=== PATIENT | female | born 1985 | race African-American/Black ===

== ENCOUNTER 2017-04-14 07:05 | Emergency (ER) | payer OTHER ==
[2017-04-14 07:13] VITALS: TEMP 98.1; BMI 28.3
--- NOTE | 2017-04-14 08:42 | PDOC ---
History of Present Illness - General Chief Complaint: Vaginal Sxs Stated Complaint: VAGINAL SIGNS AND SYMPTOMS Time Seen by Provider: 04/14/17 07:33 History Source: Patient Exam Limitations: No Limitations - History of Present Illness Travel History: No Initial Comments: 04/14/17 09:00 Patient came to emergency department for evaluation of chronic vaginal drainage and diagnosis of bacterial vaginosis. Patient has been treated on multiple occasions with Flagyl by mouth and vaginal suppositories. Last episode was approximately one year ago 04/14/17 09:08 04/15/17 14:48 Quality: reports: mild, other (foul smell) Past History - Travel Traveled outside of the country in the last 30 days: No Close contact w/someone who was outside of country & ill: No - Past Medical History Allergies/Adverse Reactions: Allergies Allergy/AdvReac Type Severity Reaction Status Date / Time No Known Allergies Allergy Verified 04/14/17 07:09 Home Medications: Ambulatory Orders Metronidazole 0.75% Vag. Gel [Metrogel 0.75% Vaginal Gel -] 1 applic VG HS #1 tube 04/14/17 Asthma: No Cancer: Yes (PITUITARY TUMOR) Cardiac Disorders: No Diabetes: No HTN: No Seizures: No Thyroid Disease: No - Family Disease History Family Disease History: Diabetes: Father, Heart Disease: Father - Reproductive History Is Patient Now?: No (#): 4 Para: 1 Cervical CA: No Dysfunctional Uterine Bleeding: No Ectopic : No Endometrial CA: No Polycystic Ovaries: No Tubal Ligation: No Spontaneous : 2 - Immunization History Td Vaccination: No Immunization Up to Date: No - Psycho/Social/Smoking Cessation Hx Anxiety: No Suicidal Ideation: No Smoking Status: No Smoking History: Never smoked Years of Tobacco Use: 1 Have you smoked in the past 12 months: No Number of Cigarettes Smoked Daily: 0 Information on smoking cessation initiated: No Hx Alcohol Use: No Drug/Substance Use Hx: No Substance Use Type: None Hx Substance Use Treatment: No Review of Systems - Review of Systems Able to Perform ROS?: Yes Is the patient limited Urdu proficient: Yes Constitutional: Yes: Symptoms Reported, See HPI, Malaise HEENTM: Yes: Symptoms Reported, See HPI Respiratory: Yes: Symptoms reported, See HPI ABD/GI: Yes: Symptoms Reported, Other (tenderness to ruQ/ LLQ and right pelvis ) Musculoskeletal: Yes: Symptoms Reported, See HPI, Back Pain, Joint Pain (right hip ), Neck Pain All Other Systems: Reviewed and Negative *Physical Exam - Vital Signs Last Vital Signs Temp Pulse Resp BP Pulse Ox 98.1 F 60 18 122/55 100 04/14/17 07:09 04/14/17 07:09 04/14/17 07:09 04/14/17 07:09 04/14/17 07:09 - Physical Exam General Appearance: Yes: Nourished, Appropriately Dressed, Apparent Distress, Severe Distress HEENT: positive: LYNDA, TMs Normal, Pharynx Normal Neck: positive: Tender, Supple, Tender midline Respiratory/Chest: positive: Lungs Clear, Normal Breath Sounds Female Pelvic Exam: positive: normal external exam, discharge (fishy odored brownlee / white discharge listed with appearance of bacterial vaginosis) Gastrointestinal/Abdominal: positive: Soft. 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 We'll treat with MetroGel and given 2 refills. 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 Gel [Metrogel 0.75% Vaginal Gel -] 1 applic VG HS #1 tube - Referrals Referrals: Anita Eastman MD [Primary Care Provider] - - Patient Instructions Printed Discharge Instructions: DI for Bacterial Vaginosis Additional Instructions: Rest, drink lots of fluids: Teas, water, soups Avoid contact with others until fevers and symptoms resolved Lots of handwashing and good hygiene Continue [id number] medications for symptomatic relief Tylenol or Motrin for fever and pain Continue all of antibiotics until completed Followup with private physician in one week for repeat urinalysis/reevaluation Return to emergency department for worsened symptoms, fevers, dehydration - Post Discharge Activity Work/School Note: Back to Work
[2017-04-14] MEDS ORDERED: morphine CARPU-JECT 10 MG/1 ML DISP.SYRIN IVPUSH ONE (08:57)
[2017-04-14 09:20] VITALS: BP 118/60; PULSE 69
== END 2017-04-14 09:00 | disposition home or self-care (01) ==
LOC: JER 07:05
DX: N76.0 Acute vaginitis (principal); B96.89 Other specified bacterial agents as the cause of diseases classified elsewhere
CPT/HCPCS: 84703; 99282-25

== ENCOUNTER 2017-07-28 10:45 | Emergency (ER) | payer OTHER ==
[2017-07-28 11:09] VITALS: BP 116/81; PULSE 71; TEMP 98; BMI 28.8
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
== END 2017-07-28 12:18 | disposition home or self-care (01) ==
LOC: JER 10:45 → JERFT 10:45 → JER 12:18
DX: T59.814A Toxic effect of smoke, undetermined, initial encounter (principal); J68.8 Other respiratory conditions due to chemicals, gases, fumes and vapors; Y92.811 Bus as the place of occurrence of the external cause
CPT/HCPCS: 99282-25

== ENCOUNTER 2018-02-12 17:21 | Emergency (ER) | payer OTHER ==
[2018-02-12] MEDS ORDERED: ALBUTEROL SO4 2.5/IPRATROPIUM 0.5 INH SOL 3 ML VIAL.NEB. NEB ONE ×4 (17:43→19:08)
--- NOTE | 2018-02-12 17:44 | PDOC ---
Rapid Medical Evaluation Time Seen by Provider: 02/12/18 17:39 Medical Evaluation: Allergies Allergy/AdvReac Type Severity Reaction Status Date / Time No Known Allergies Allergy Verified 07/28/17 11:08 02/12/18 17:39 The patient presents with a chief complaint of: Cough with chest tightness and back tightness for one week. Also admits to sore throat and shortness of breath. I have performed a brief in-person evaluation of this patient; Pertinent physical exam findings: ambulatory, in no respiratory distress. Tight lung sounds. No w/r/r. I have ordered the following: EKG, Rapid strep, duoneb The patient will proceed to the ED for further evaluation.
[2018-02-12 17:45] VITALS: BP 126/74; PULSE 68; TEMP 98.5; BMI 28.8
--- NOTE | 2018-02-12 19:11 | PDOC ---
History of Present Illness - General Chief Complaint: Respiratory Stated Complaint: COLD SYMPTOMS Time Seen by Provider: 02/12/18 17:39 History Source: Patient Exam Limitations: No Limitations - History of Present Illness Initial Comments: 02/12/18 19:06 Patient is here with complaints of tightness and inspiratory pain to chest for a few days. States has significant post-sinus drainage, and suffers from seasonal ALLERGIES. Thinks may have onset of those ALLERGIES now but has taken no medication for relief. Was concerned about having pneumonia. Denies fever, denies phlegm production, no one else at home is sick. Severity: reports: mild Associated Symptoms: reports: chest pain/soreness, cough, nasal congestion, wheezing. denies: facial pain, fever/chills, nasal drainage, sore throat Past History - Travel Traveled outside of the country in the last 30 days: No Close contact w/someone who was outside of country & ill: No - Past Medical History Allergies/Adverse Reactions: Allergies Allergy/AdvReac Type Severity Reaction Status Date / Time No Known Allergies Allergy Verified 02/12/18 17:40 Home Medications: Ambulatory Orders Cetirizine HCl [Zyrtec -] 10 mg PO DAILY #30 tablet 02/12/18 Asthma: No Cancer: Yes (PITUITARY TUMOR) Cardiac Disorders: No COPD: No Diabetes: No HTN: No Seizures: No Thyroid Disease: No - Family Disease History Family Disease History: Diabetes: Father, Heart Disease: Father - Reproductive History (#): 4 Para: 1 Cervical CA: No Dysfunctional Uterine Bleeding: No Ectopic : No Endometrial CA: No Polycystic Ovaries: No Tubal Ligation: No Spontaneous : 2 - Immunization History Td Vaccination: No Immunization Up to Date: No - Suicide/Smoking/Psychosocial Hx Smoking Status: No Smoking History: Current every day smoker Years of Tobacco Use: 1 Have you smoked in the past 12 months: Yes Number of Cigarettes Smoked Daily: 3 Information on smoking cessation initiated: No Hx Alcohol Use: No Drug/Substance Use Hx: No Substance Use Type: None Hx Substance Use Treatment: No Respiratory Specific PMHX - Complaint Specific PMHX Angina: No Bronchitis: No Pneumonia: No Pulmonary Embolus: No TB (Tuberculosis): No Review of Systems - Review of Systems Able to Perform ROS?: Yes Is the patient limited [place] proficient: Yes Constitutional: Yes: Symptoms Reported, See HPI, Malaise. No: Fever HEENTM: Yes: See HPI. No: Symptoms Reported Respiratory: Yes: Symptoms reported, See HPI, Cough Integumentary: No: Symptoms Reported Neurological: Yes: Symptoms reported All Other Systems: Reviewed and Negative *Physical Exam - Vital Signs Last Vital Signs Temp Pulse Resp BP Pulse Ox 98.5 F 68 18 126/74 96 02/12/18 17:40 02/12/18 17:40 02/12/18 17:40 02/12/18 17:40 02/12/18 17:40 - Physical Exam General Appearance: Yes: Appropriately Dressed. No: Apparent Distress HEENT: positive: LYNDA, Normal ENT Inspection (noted posterior sinus drainage, thick white), TMs Normal, Pharynx Normal Neck: positive: Tender, Supple, Lymphadenopathy (R), Lymphadenopathy (L) Respiratory/Chest: positive: Lungs Clear, Normal Breath Sounds. 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 We'll recommend antihistamine use as pollen season is starting. *DC/Admit/Observation/Transfer Diagnosis at time of Disposition: Allergic rhinitis Qualifiers: Allergic rhinitis trigger: unspecified Allergic rhinitis seasonality: seasonal Qualified Code(s): J30.2 - Other seasonal allergic rhinitis - Discharge Dispostion Disposition: HOME Condition at time of disposition: Stable Admit: No - Referrals - Patient Instructions Additional Instructions: Rest, drink lots of fluids: Teas, water, soups Saltwater gargles. Consider humidifier in room at night Steamy showers/seem to face break up mucus Avoid contact with allergens, exposure to pollens, close windows on a windy day Lots of handwashing and good hygiene Continue [id number] medications for symptomatic relief- may use allergic eyedrops for itching I Continue antihistamines daily until pollen season is over; Zyrtec, Claritin, Sun during the daytime and Benadryl at nighttime as will make sleepy Tylenol or Motrin for fever and pain Followup with private physician in one to 2 days as needed Consider following up with an law instructor/grain oilseed or pasture farm manager for skin testing and possible allergy shots Return to emergency department for worsened symptoms, fevers, dehydration - Post Discharge Activity Forms/Work/School Notes: Back to Work
== END 2018-02-12 19:31 | disposition home or self-care (01) ==
LOC: JER 17:21 → JERFT 17:21
PROC: 3E0F7GC Introduction of Other Therapeutic Substance into Respiratory Tract, Via Natural or Artificial Opening (ICD-10-PCS; principal; 2018-02-12)
PROC: 3E0F7GC Introduction of Other Therapeutic Substance into Respiratory Tract, Via Natural or Artificial Opening (ICD-10-PCS; 2018-02-12)
DX: J30.2 Other seasonal allergic rhinitis (principal); F17.210 Nicotine dependence, cigarettes, uncomplicated
CPT/HCPCS: 87070; 87077; 87430; 99281-25

== ENCOUNTER 2018-11-11 15:55 | Emergency (ER) | payer OTHER ==
[2018-11-11 16:19] VITALS: BP 121/67; PULSE 72; TEMP 98.1; BMI 28.8
[2018-11-11] MEDS ORDERED: ALBUTEROL SO4 2.5/IPRATROPIUM 0.5 INH SOL 3 ML VIAL.NEB. NEB ONE ×2 (16:20→16:50)
--- NOTE | 2018-11-11 16:20 | PDOC ---
Rapid Medical Evaluation Medical Evaluation: Allergies Allergy/AdvReac Type Severity Reaction Status Date / Time No Known Allergies Allergy Verified 02/12/18 17:40 I have performed a brief in-person evaluation of this patient. The patient presents with a chief complaint of: sore throat x 2 days along with chest tightness, dry cough; denies fever, rhinorrhea, nasal congestion; former smoker (quit 6 months ago); denies any medical problems Pertinent physical exam findings: Oropharynx clear, some tonsillar enlargement noted, but no exudates; lungs clear I have ordered the following: trial of duoneb x1 The patient will proceed to the ED for further evaluation. 11/11/18 16:16
[2018-11-11] MEDS ORDERED: methylPREDNISolone NA SUCC 125 MG/2 ML VIAL IM ONE (16:49)
[2018-11-11] MEDS ORDERED: methylPREDNISolone NA SUCC 125 MG/2 ML VIAL ONE (16:50)
--- NOTE | 2018-11-11 16:55 | PDOC ---
History of Present Illness - General Chief Complaint: Respiratory Stated Complaint: SORE THROAT Time Seen by Provider: 11/11/18 16:39 History Source: Patient Exam Limitations: Clinical Condition - History of Present Illness Initial Comments: 11/11/18 16:51 Patient with no significant past medication present with complaint of three-day history of nonproductive cough, runny nose, sore throat and chest tightness. Patient denies fever, chills, patient denies any other symptoms Timing/Duration: other (3 days) Past History - Past Medical History Allergies/Adverse Reactions: Allergies Allergy/AdvReac Type Severity Reaction Status Date / Time No Known Allergies Allergy Verified 11/11/18 16:19 Home Medications: Ambulatory Orders Benzonatate [Tessalon Pearls -] 100 mg PO TID PRN #21 capsule 11/11/18 Ipratropium [place] 2 spray NS BID PRN #1 spray 11/11/18 Methylprednisolone [Medrol Dose Grey] 4 mg PO ASDIR #21 tablet 11/11/18 Asthma: No Cancer: Yes (PITUITARY TUMOR) Cardiac Disorders: No COPD: No Diabetes: No HTN: No Seizures: No Thyroid Disease: No - Family Disease History Family Disease History: Diabetes: Father, Heart Disease: Father - Reproductive History (#): 4 Para: 1 Cervical CA: No Dysfunctional Uterine Bleeding: No Ectopic : No Endometrial CA: No Polycystic Ovaries: No Tubal Ligation: No Spontaneous : 2 - Immunization History Td Vaccination: No Immunization Up to Date: No - Suicide/Smoking/Psychosocial Hx Smoking Status: No Smoking History: Never smoked Years of Tobacco Use: 1 Have you smoked in the past 12 months: No Number of Cigarettes Smoked Daily: 0 Information on smoking cessation initiated: No Hx Alcohol Use: No Drug/Substance Use Hx: No Substance Use Type: None Hx Substance Use Treatment: No Review of Systems - Review of Systems Able to Perform ROS?: Yes Is the patient limited Greek proficient: No Constitutional: No: Chills, Fever, Malaise, Weakness HEENTM: Yes: Symptoms Reported, See HPI, Nose Congestion, Throat Pain. No: Eye Pain, Blurred Vision, Tearing, Recent change in vision, Double Vision, Cataracts , Ear Pain, Ocular Prothesis, Ear Discharge, Nose Pain, Tinnitus, Nose Bleeding , Hearing Loss, Throat Swelling, Mouth Pain, Dental Problems, Difficulty Swallowing, Mouth Swelling, Other Respiratory: Yes: Symptoms reported, See HPI, Cough. No: Orthopnea, Shortness of Breath, SOB with Exertion, SOB at Rest, Stridor, Wheezing, Productive cough, Hemoptysis, Other Cardiac (ROS): Yes: Symptoms Reported, See HPI, Chest Tightness. No: Chest Pain , Edema, Irregular Heart Rate, Lightheadedness, Palpitations, Syncope, Other ABD/GI: No: Nausea, Vomiting All Other Systems: Reviewed and Negative *Physical Exam - Vital Signs Last Vital Signs Temp Pulse Resp BP Pulse Ox 98.1 F 72 16 121/67 100 11/11/18 16:17 11/11/18 16:17 11/11/18 16:17 11/11/18 16:17 11/11/18 16:17 - Physical Exam Comments: 11/11/18 16:52 GENERAL: Well developed, well nourished. Awake and alert. No acute distress. HEENT: Normocephalic, atraumatic. PERRLA, EOMI. No conjunctival pallor. Sclera are non-icteric. Moist mucous membranes. Oropharynx is clear. Mildly enlarged bilateral tonsils. No exudates or pharyngeal erythema. NECK: Supple. Full ROM. CARDIOVASCULAR: Regular rate and rhythm. No murmurs, rubs, or gallops. Distal pulses are 2+ and symmetric. PULMONARY: No evidence of respiratory distress. Lungs clear to auscultation bilaterally. No wheezing, rales or rhonchi. ABDOMINAL: Soft. Non-tender. Non-distended. No rebound or guarding. No organomegaly. Normoactive bowel sounds. MUSCULOSKELETAL Normal range of motion at all joints. EXTREMITIES: No cyanosis. No clubbing. No edema. No calf tenderness. SKIN: Warm and dry. Normal capillary refill. No rashes. No jaundice. NEUROLOGICAL: Alert, awake, appropriate. Gait is normal without ataxia. PSYCHIATRIC: Cooperative. Good eye contact. Appropriate mood General Appearance: Yes: Nourished, Appropriately Dressed. No: Apparent Distress Moderate Sedation - Procedure Monitoring Vital Signs: Procedure Monitoring Vital Signs Temperature 98.1 F 11/11/18 16:17 Pulse Rate 72 11/11/18 16:17 Respiratory Rate 16 11/11/18 16:17 Blood Pressure 121/67 11/11/18 16:17 O2 Sat by Pulse Oximetry (%) 100 11/11/18 16:17 Medical Decision Making - Medical Decision Making 11/11/18 16:53 Patient with no significant past medical history present with complaint of three -day history of URI symptoms with sore throat and chest tightness. Patient with no fever and reported no fever home. Clinical exam unremarkable with lungs clear to auscultation bilateral. Mild enlarged bilateral tonsils on exam. Rapid strep tests ordered. Solu-Medrol 125 mg IM and nebulizer treatment with albuterol and Atrovent given for bronchospasm. Treat based on test results 11/11/18 18:08 Patient reported feeling better after nebulizer treatment and Solu-Medrol IM. Rapid strep negative. Patient symptoms likely viral URI and stable for outpatient treatment with PCP follow-up. *DC/Admit/Observation/Transfer Diagnosis at time of Disposition: Bronchospasm URI (upper respiratory infection) Qualifiers: URI type: unspecified URI Qualified Code(s): J06.9 - Acute upper respiratory infection, unspecified Pharyngitis Qualifiers: Pharyngitis/tonsillitis etiology: unspecified etiology Qualified Code(s): J02.9 - Acute pharyngitis, unspecified - Discharge Dispostion Disposition: HOME Condition at time of disposition: Stable Decision to Admit order: No - Prescriptions Prescriptions: Benzonatate [Tessalon Pearls -] 100 mg PO TID PRN #21 capsule PRN Reason: Cough Ipratropium [place] 2 spray NS BID PRN #1 spray PRN Reason: nasal congestion Methylprednisolone [Medrol Dose Grey] 4 mg PO ASDIR #21 tablet - Referrals - Patient Instructions Printed Discharge Instructions: DI for Viral Upper Respiratory Infection -- Adult Additional Instructions: Medications as prescribed. Increase fluid intake. Follow with PCP as needed - Post Discharge Activity
== END 2018-11-11 18:08 | disposition home or self-care (01) ==
LOC: JER 15:55 → JERFT 15:55
PROC: 3E0F7GC Introduction of Other Therapeutic Substance into Respiratory Tract, Via Natural or Artificial Opening (ICD-10-PCS; principal; 2018-11-11)
PROC: 3E0233Z Introduction of Anti-inflammatory into Muscle, Percutaneous Approach (ICD-10-PCS; 2018-11-11)
DX: J98.01 Acute bronchospasm (principal); J06.9 Acute upper respiratory infection, unspecified; J02.9 Acute pharyngitis, unspecified
CPT/HCPCS: 87070; 87880; 99281-25

== ENCOUNTER 2019-10-05 09:13 | Emergency (ER) | payer OTHER ==
[2019-10-05 09:23] VITALS: BP 106/64; PULSE 58; TEMP 98.7; BMI 27.6
[2019-10-05] MEDS ORDERED: KETOROLAC TROMETHAMINE 30 MG/1 ML VIAL IM ONE (09:42)
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
[2019-10-05] MEDS ORDERED: KETOROLAC TROMETHAMINE 30 MG/1 ML VIAL ONE (09:53)
== END 2019-10-05 10:30 | disposition home or self-care (01) ==
LOC: JERFT 09:13
PROC: 2W3DX1Z Immobilization of Left Lower Arm using Splint (ICD-10-PCS; principal; 2019-10-05)
PROC: 3E0233Z Introduction of Anti-inflammatory into Muscle, Percutaneous Approach (ICD-10-PCS; 2019-10-05)
DX: S13.4XXA Sprain of ligaments of cervical spine, initial encounter (principal); S66.812A Strain of other specified muscles, fascia and tendons at wrist and hand level, left hand, initial encounter; V44.6XXA Car passenger injured in collision with heavy transport vehicle or bus in traffic accident, initial encounter; Y92.488 Other paved roadways as the place of occurrence of the external cause; Y93.89 Activity, other specified; Y99.8 Other external cause status
CPT/HCPCS: 99281-25

== ENCOUNTER 2020-09-30 11:09 | Emergency (ER) | payer OTHER ==
[2020-09-30 11:19] VITALS: BP 107/68; PULSE 79; TEMP 97.8; BMI 29.1
[2020-09-30] MEDS ORDERED: ACETAMINOPHEN 325 MG TABLET (FP) PO ONE (12:39)
[2020-09-30 12:56] LABS: BASO % 0.7 % (0-2.0); EOS % 3.5 % (0-4.5); HEMOGLOBIN 12.7 GM/dL (10.7-15.3); LYMPH % 25.9 % (8-40); MCH 26.5 pg (25.7-33.7); MCHC 33.5 g/dl (32.0-36.0); MEAN CELL VOLUME 79.3 fl (80-96); MEAN PLT VOLUME 8.4 fl (7.5-11.1); MONO % 7.1 % (3.8-10.2); NEUT % 62.8 % (42.8-82.8); PLATELET COUNT 303 K/MM3 (134-434); RDW 14.8 % (11.6-15.6); WHITE BLOOD COUNT 7.7 K/mm3 (4.0-10.0)
[2020-09-30] MEDS ORDERED: ACETAMINOPHEN 325 MG TABLET (FP) ONE ×2 (12:56→12:57)
[2020-09-30 13:12] LABS: CHLORIDE 108 mmol/L (98-107); POTASSIUM 3.7 mmol/L (3.5-5.1); SODIUM 139 mmol/L (136-145)
[2020-09-30 13:14] LABS: ALBUMIN 3.8 g/dl (3.4-5.0); ANION GAP 6 MMOL/L (8-16); BLOOD UREA NITROGEN 7.5 mg/dL (7-18); CO2 26 mmol/L (21-32)
[2020-09-30 13:15] LABS: GLUCOSE,RANDOM 83 mg/dL (74-106)
[2020-09-30 13:17] LABS: SGOT/AST 14 U/L (15-37); SGPT/ALT 18 U/L (13-61)
[2020-09-30 13:18] LABS: CREATININE 0.8 mg/dL (0.55-1.3)
[2020-09-30 13:19] LABS: BILIRUBIN,TOTAL 0.3 mg/dL (0.2-1); TOT PROT 7.5 g/dl (6.4-8.2)
[2020-09-30 13:20] LABS: ALK PHOS 53 U/L (45-117)
== END 2020-09-30 14:20 | disposition home or self-care (01) ==
LOC: JERFT 11:09 → JER 11:09
DX: N64.4 Mastodynia (principal)
CPT/HCPCS: 36415; 71046-TC-FY; 80053; 82550; 84484; 84703; 85025; 93005; 93010; 99285-25

== ENCOUNTER 2023-08-24 01:14 | Emergency (ER) | payer OTHER ==
[2023-08-24 01:20] VITALS: BP 122/81; PULSE 99; RESP 24; TEMP 98.4; BMI 29.9
[2023-08-24] MEDS ORDERED: IBUPROFEN 400 MG TABLET (FP) PO ONE ×2 (01:47→02:10)
[2023-08-24 02:12] LABS: BASO % 1.3 % (0-2.0); EOS % 3.6 % (0-4.5); HEMOGLOBIN 12.3 GM/dL (10.7-15.3); LYMPH % 26.5 % (8-40); MCH 25.3 pg (25.7-33.7); MCHC 33.2 g/dl (32.0-36.0); MEAN CELL VOLUME 76.2 fl (80-96); MEAN PLT VOLUME 8.2 fl (7.5-11.1); MONO % 8.4 % (3.8-10.2); NEUT % 60.2 % (42.8-82.8); PLATELET COUNT 327 10^3/uL (134-434); RBC 4.86 M/mm3 (3.60-5.2); RDW 15.7 % (11.6-15.6); WHITE BLOOD COUNT 12.2 K/mm3 (4.0-10.0)
[2023-08-24 02:19] LABS: INR 1.1 (0.83-1.09); PROTHROMBIN TIME (PATIENT) 12.7 SEC (9.7-13.0)
[2023-08-24 02:22] LABS: ACTIVATED PTT 25.9 SECONDS (25.2-36.5)
[2023-08-24 02:32] LABS: POTASSIUM 3.6 mmol/L (3.5-5.1)
[2023-08-24 02:34] LABS: ALBUMIN 3.2 g/dl (3.4-5.0); CALCIUM 8.5 mg/dL (8.5-10.1)
[2023-08-24 02:35] LABS: BLOOD UREA NITROGEN 7.5 mg/dL (7-18)
[2023-08-24 02:38] LABS: CREATININE 0.9 mg/dL (0.55-1.3)
[2023-08-24 02:39] LABS: BILIRUBIN,TOTAL 0.3 mg/dL (0.2-1); TOT PROT 7.1 g/dl (6.4-8.2)
== END 2023-08-24 04:25 | disposition home or self-care (01) ==
LOC: JER 01:14
DX: R07.81 Pleurodynia (principal); R05.9 Cough, unspecified; J02.9 Acute pharyngitis, unspecified; F17.210 Nicotine dependence, cigarettes, uncomplicated; Z20.822 Contact with and (suspected) exposure to COVID-19
CPT/HCPCS: 0241U-QW; 36415; 71046-TC-FY; 80053; 84484; 84703; 85025; 85379; 85610; 85730; 93005; 93010; 99285-25